=== PATIENT | female | born 1990 | race Caucasian/White ===

== ENCOUNTER 2018-07-03 09:35 | Inpatient (IN) ==
[2018-07-03] MEDS ORDERED: Sodium Chlor 0.9% Inj 500 ML IV.SIG PRN (10:13)
[2018-07-03] MEDS ORDERED: Oxytocin 30 Units/500ml Premix 30 UNITS/500 ML BAG IV.SIG ONE (10:13)
[2018-07-03] MEDS ORDERED: fentaNYL Citrate Inj 100 MCG/2 ML Ampul IV.PUSH PRN ×2 (10:13)
[2018-07-03] MEDS ORDERED: Sod Chloride 0.9% Inj 1,000 ML IV.CONT PRN (10:13)
[2018-07-03] MEDS ORDERED: Naloxone Inj 0.4 MG/ML Vial IV.PUSH PRN ×2 (10:13→18:21)
[2018-07-03] MEDS ORDERED: Citric Acid/Sodium Citrate Liq 30 ML UDC PO SCH (10:15)
--- NOTE | 2018-07-03 10:20 | P.HPOB ---
History of Present Illness Primary Care Physician: UNKNOWN History of Present Illness: 28 yr G for p 1021 at 39 weeks and 4 days gestation by ultrasound, that began to have contractions at 5 PM yesterday that were initially 10 minutes apart and increased to 5 minutes apart. She denies leakage of fluid, vaginal bleeding, vaginal discharge. She has been receiving care throughout the duration of her . She reports no complications with this . Endorses good movement. Ob Hx: Patient had a total of 4 pregnancies with one at term due to nonreassuring heart tracing. She has had one miscarriage and one elective . 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 Patient endorses smoking 1-2 cigarettes daily for the duration of her . She denies any use of alcohol at any point during her . She does endorse use of marijuana in the beginning of her for nausea. Allergies: None - Inpatient Certification I certify that the inpatient services were ordered in accordance with Medicare regulations governing the order. This includes certification that hospital inpatient services are reasonable and necessary and in the case of services not specified as inpatient-only under 42 CFR 419.22(n), that they are appropriately provided as inpatient services in accordance to with the 2-midnight benchmark under 43 CFR 412.3(e) Estimated Total Length of Stay (Days): 2 Plans for Post Hospital Care: Home Review of Systems Constitutional: Denies chills, Denies fatigue, Denies fever(s), Denies headache( s), Denies dizziness, Denies recent illness Eyes: Denies change in vision, Denies double vision, Denies blurry vision Cardiovascular: Denies chest pain, , Denies shortness of breath Respiratory: Denies shortness of breath or wheezing Gastrointestinal: Endorses nausea with one episode of nonbilious nonbloody vomiting this morning, denies abdominal pain, Denies constipation, Denies loose stools Genitourinary: Denies difficulty starting urination, Denies difficulty urinating , Denies painful urination, Denies urinary frequency, Denies pelvic pain, Denies urinary incontinence, Denies blood in urine OB: Endorses positive movement, Denies vaginal discharge or fluid PMFSH - Medical History Medical History: Medical History (Last Updated 07/03/18 @ 01:21 by Ary Michaels MD) Anxiety disorder - Surgical History Surgical History: Surgical History (Last Updated 07/03/18 @ 01:20 by Ary Michaels MD) H/O LEEP History of delivery - Tobacco History Smoking Status: Smoker, status unknown - Alcohol History How Often Do You Have a Drink Containing Alcohol: Never - Substance Use History Substance History: No History of Abuse - Travel History History of Recent Travel: No Recent Travel in the [place] Within the Last 8 Weeks: No Recent Travel Out of the Country Within the Last 8 Weeks: No Medications and Allergies Allergies Allergy/AdvReac Type Severity Reaction Status Date / Time No Known Allergies Allergy Verified 07/03/18 00:48 Home Medications Medication Instructions Recorded Confirmed Type PNV #[id number] 1 tab PO QWEEK 07/03/18 07/03/18 History Active Medications: Active Medications Citric Acid/Sodium Citrate (Sodium Citrate/Citric Acid Liq) 30 ml 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 Stop: 07/07/18 10:14 Fentanyl Citrate (Fentanyl Inj) 50 mcg IV.PUSH Q1H PRN PRN Reason: Pain Scale 3 - 5 Fentanyl Citrate (Fentanyl Inj) 100 mcg IV.PUSH Q1H PRN PRN Reason: PAIN SCALE 6 TO 10 Lactated Ringer's (Lr 1000 Ml Inj) 1,000 mls @ 125 mls/hr IV.CONT .Q8H GARRICK Lactated Ringer's (Lr 1000 Ml Inj) 1,000 mls @ 3,000 mls/hr IV.SIG UNSCH PRN PRN Reason: compromise or epidural Sodium Chloride (Ns Inj) 1,000 mls @ 100 mls/hr IV.CONT .Q10H PRN PRN Reason: SEE LABEL COMMENTS Oxytocin (Pitocin 30 Units/Ns 500 Ml Premix) 30 units in 500 mls @ 999 mls/hr IV.SIG BOLUS ONE Stop: 07/03/18 10:43 Sodium Chloride (Ns Inj) 500 mls @ 1,000 mls/hr IV.SIG UNSCH PRN PRN Reason: SEE LABEL COMMENTS Lidocaine HCl (Xylocaine 1% Inj) 0.1 ml I-DERMAL PRN PRN PRN Reason: For IV start Stop: 07/06/18 10:12 Lidocaine HCl (Xylocaine 1% Inj) 10 ml INFILTRATN PRN PRN PRN Reason: For episiotomy repair Stop: 07/05/18 10:12 Mineral Oil (Muri-Lube Oil) 10 ml TOPICAL PRN PRN PRN Reason: PRN perineal massage Naloxone HCl (Narcan Inj) 0.1 mg IV.PUSH Q2M PRN PRN Reason: for opiate reversal Exam Vital signs: Vital Signs 07/03/18 09:48 07/03/18 09:55 Temperature 97.9 F Pulse Rate 88 83 Respiratory Rate 18 Blood Pressure 124/74 Intake & Output 07/02/18 07/03/18 07/03/18 18:59 06:59 18:59 Weight 97.976 kg Narrative: GENERAL: Well-nourished, well-developed patient. SKIN: Warm and dry. HEAD: Normocephalic and atraumatic. EYES: No scleral icterus. No injection or drainage. CARDIOVASCULAR: Regular rate and rhythm without murmurs, gallops, or rubs. RESPIRATORY: Breath sounds equal bilaterally. No accessory muscle use. ABDOMEN/GI: Abdomen soft, non-tender, bowel sounds present, no rebound, no guarding Gravid to 40 weeks size GENITOURINARY: External Genitalia: intact and normal in appearance Dilatation: 4-5 Effacement: 90% effaced Station: -2 Presentation: vertex Membranes: Intact Uterine Contractions: Yes FHT's: Category: 2 Baseline: 130s Reactive: Yes Variability: Moderate Decels: Occasional variables EXTREMITIES: No cyanosis or edema. BACK: Nontender without obvious deformity. No CVA tenderness. NEUROLOGICAL: Awake and alert. Moves all extremities without difficulty. Normal speech. Results - Labs CBC & Chem 7: 07/03/18 10:45 Caprini VTE Risk Assessment Caprini VTE Risk Assessment: No/Low Risk (score <= 1) Caprini Risk Assessment Model: Point Value = 1 Point Value = 2 Point Value = 3 Point Value = 5 Age 41-60 Minor surgery BMI > 25 kg/m2 Swollen legs Varicose veins or History of unexplained or recurrent spontaneous Oral contraceptives or hormone replacement Sepsis (< 1 month) Serious lung disease, including pneumonia (< 1 month) Abnormal pulmonary function Acute myocardial infarction Congestive heart failure (< 1 month) History of inflammatory bowel disease Medical patient at bed rest Age 61-74 Arthroscopic surgery Major open surgery (> 45 min) Laparoscopic surgery (> 45 min) Malignancy Confined to bed (> 72 hours) Immobilizing plaster cast Central venous access Age >= 75 History of VTE Family history of VTE Factor V Leiden Prothrombin [id number] Lupus anticoagulant Anticardiolipin antibodies Elevated serum homocysteine Heparin-induced thrombocytopenia Other congenital or acquired thrombophilia Stroke (< 1 month) Elective arthroplasty Hip, pelvis, or leg fracture Acute spinal cord injury (< 1 month) Prophylaxis Regimen: Total Risk Factor Score Risk Level Prophylaxis Regimen 0-1 Low Early ambulation 2 Moderate Order ONE of the following: *Sequential Compression Device (SCD) *Heparin 5000 units SQ BID 3-4 Higher Order ONE of the following medications: *Heparin 5000 units SQ TID *Enoxaparin/Lovenox 40 mg SQ daily (WT < 150 kg, CrCl > 30 mL/min) *Enoxaparin/Lovenox 30 mg SQ daily (WT < 150 kg, CrCl > 10-29 mL/min) *Enoxaparin/Lovenox 30 mg SQ BID (WT < 150 kg, CrCl > 30 mL/min) AND/OR *Sequential Compression Device (SCD) 5 or more Highest Order ONE of the following medications: *Heparin 5000 units SQ TID (Preferred with Epidurals) *Enoxaparin/Lovenox 40 mg SQ daily (WT < 150 kg, CrCl > 30 mL/min) *Enoxaparin/Lovenox 30 mg SQ daily (WT < 150 kg, CrCl > 10-29 mL/min) *Enoxaparin/Lovenox 30 mg SQ BID (WT < 150 kg, CrCl > 30 mL/min) AND *Sequential Compression Device (SCD) Assessment and Plan - Plan 28 yr G for p 1021 at 39 weeks and 4 days gestation by ultrasound, that began to have contractions at 5 PM yesterday that were initially 10 minutes apart and increased to 5 minutes apart. Patient found to be 4-5 cm dilated with 90% effaced and -2 station with intact membranes. Reassuring heart rate. Patient will be admitted for labor. GBS negative. Patient requests epidural. -admit to labor and delivery line -Expectant management -Monitor heart rate -Monitor contractions via tocometer -Cervical checks every 4 -Epidural for pain - Attending Attestation The exam, history, and the medical decision-making described in the above note were completed with the assistance of the resident physician. I reviewed and agree with the findings presented. I attest that I had a [id number] encounter with the patient on the same day, and personally performed and documented my assessment and findings in the medical record.
[2018-07-03 11:19] LABS: Baso # (Auto) 0.1 th/mm3 (0.0-0.2); Baso % (Auto) 0.6 % (0.0-2.0); Eos % (Auto) 0.2 % (0.0-4.0); Hematocrit 40.5 % (35.0-46.0); Hemoglobin 13.4 gm/dL (11.6-15.3); Lymph # (Auto) 1.3 th/mm3 (1.0-4.8); Lymph % (Auto) 6.9 % (9.0-44.0); Mean Corpuscular HGB Conc 33.1 % (32.0-36.0); Mean Corpuscular Hemoglobin 29.5 pg (27.0-34.0); Mean Corpuscular Volume 89.3 fL (80.0-100.0); Mean Platelet Volume 8.2 fL (7.0-11.0); Mono # (Auto) 1.1 th/mm3 (0.0-0.9); Mono % (Auto) 5.6 % (0.0-8.0); Neut # (Auto) 16.5 th/mm3 (1.8-7.7); Neut % (Auto) 86.7 % (16.0-70.0); Platelet Count 333 th/mm3 (150-450); Red Blood Count 4.53 mil/mm3 (4.00-5.30); Red Cell Distribution Width 13.4 % (11.6-17.2)
[2018-07-03] MEDS ORDERED: fentaNYL 2MCG-Bupiv 0.125% Epi 150 ML EPIDURAL ONE (11:26)
--- NOTE | 2018-07-03 14:11 | P.OBLABOR ---
Subjective Interval history: The patient reports good relief with her epidural. Objective Vital Signs: Vital Signs - 8 hr 07/03/18 09:48 07/03/18 09:55 07/03/18 10:40 Temperature 97.9 F Pulse Rate 88 83 74 Respiratory Rate 18 20 Blood Pressure 124/74 07/03/18 11:00 07/03/18 11:05 07/03/18 11:30 Temperature Pulse Rate 78 94 H 77 Respiratory Rate 20 20 Blood Pressure 126/69 127/72 07/03/18 11:56 07/03/18 12:21 07/03/18 12:25 Temperature Pulse Rate 80 84 94 H Respiratory Rate Blood Pressure 142/97 H 135/83 07/03/18 12:30 07/03/18 13:00 07/03/18 13:10 Temperature Pulse Rate 86 90 Respiratory Rate 20 20 Blood Pressure 128/78 121/66 07/03/18 13:30 07/03/18 13:56 Temperature Pulse Rate 81 85 Respiratory Rate 20 20 Blood Pressure 127/81 Objective: Pelvic Exam: Cervix: [-] Dilatation: [6-] Effacement: [-100] Station: [-2-] Presentation: [-vtx] Membranes: [ruptured] Uterine Contractions: [-q3] FHT's: Category: [1-] Baseline: [-] Reactive: [-] Variability: [mod-] Decels: [-] Artificial Rupture of Membrane: Yes Artificial ROM Date: 07/03/18 Artificial ROM Time: 14:08 Assessment and Plan - Plan 28 yr G for p 1021 at 39 weeks and 4 days gestation by ultrasound, that began to have contractions at 5 PM yesterday that were initially 10 minutes apart and increased to 5 minutes apart. Patient found to be 4-5 cm dilated with 90% effaced and -2 station with intact membranes. Reassuring heart rate. Patient will be admitted for labor. GBS negative. Progressing in active labor with continued reassuring status.
[2018-07-03] MEDS ORDERED: Bupivacaine PF 0.25% Inj 10 ML Vial ONE (15:49)
[2018-07-03] MEDS ORDERED: Diphtheria/Tetanus/Pertussis Vaccine Inj 0.5 ML Syringe IM ONE (16:00)
[2018-07-03] MEDS ORDERED: Measles/Mumps/Rubella Vaccine Inj 0.5 ML Vial SQ ONE (16:00)
[2018-07-03 16:02] LABS: Bilirubin,Urine Negative (Negative); Clarity,Urine Hazy (Clear); Color,Urine Yellow (Yellw/Straw); Glucose,Urine (UA) 50 mg/dL (Negative); Leukocyte Esterase,Urine Small (Negative); Nitrite,Urine Negative (Negative); Specific Gravity,Urine 1.017 (1.002-1.035); Squamous Epithelial Cell,Urine 2 /hpf (0-5)
[2018-07-03 16:12] LABS: Amphetamine Urine With Conf Neg (Neg); Benzodiazepine Urine With Conf Neg (Neg)
[2018-07-03] MEDS ORDERED: Bisacodyl 10 MG Supp RECTAL PRN (18:21)
[2018-07-03] MEDS ORDERED: Acetaminophen 325 MG Tablet PO PRN (18:21)
[2018-07-03] MEDS ORDERED: Witch Hazel 50%/Glyderin 12.5% 40 Pad Jar RECTAL PRN (18:21)
[2018-07-03] MEDS ORDERED: Oxytocin 30 Units/500ml Premix 30 UNITS/500 ML BAG IV.CONT PRN (18:21)
[2018-07-03] MEDS ORDERED: Benzocaine 20% Top Spray 60 ML Can TOPICAL PRN (18:21)
--- NOTE | 2018-07-03 18:21 | P.OBDELI ---
Weeks Gestation: 39 Patient Started Active Labor: Yes Active Labor Start Date: 07/03/18 Active Labor Start Time: 11:00 Medical Induction of Labor: No Artificial Rupture of Membrane: Yes Artificial ROM Date: 07/03/18 Anesthesia: Epidural Episiotomy: none Vaginal Delivery: Normal, Spontaneous, Presentation: Occiput anterior Nuchal Cord: None Delayed Cord Clamping (45 sec): Yes Placenta: Spontaneous delivery, Intact
[2018-07-03] MEDS ORDERED: Zolpidem Tartrate 5 MG Tablet PO PRN (21:00)
[2018-07-04] MEDS: Senna/Docusate Sodium 8.6/50 MG Tablet PO SCH ×2 (03:04→10:49)
--- NOTE | 2018-07-04 08:52 | P.PNOB ---
Subjective Interval history: day #1 AFVSS overnight. Decreased lochia. Denies dysuria. No breast pain. Appetite good. No nausea or vomiting. Ambulating well. Denies calf pain or shortness of breath. Otherwise, she is doing well this morning and has no other complaints. Objective Vital Signs/I&O: Vital Signs 07/03/18 09:48 07/03/18 09:55 07/03/18 10:40 Temperature 97.9 F Pulse Rate 88 83 74 Respiratory Rate 18 20 Blood Pressure 124/74 07/03/18 11:00 07/03/18 11:05 07/03/18 11:30 Temperature Pulse Rate 78 94 H 77 Respiratory Rate 20 20 Blood Pressure 126/69 127/72 07/03/18 11:56 07/03/18 12:21 07/03/18 12:25 Temperature Pulse Rate 80 84 94 H Respiratory Rate Blood Pressure 142/97 H 135/83 07/03/18 12:30 07/03/18 13:00 07/03/18 13:10 Temperature Pulse Rate 86 90 Respiratory Rate 20 20 Blood Pressure 128/78 121/66 07/03/18 13:30 07/03/18 13:56 07/03/18 14:00 Temperature 97.9 F Pulse Rate 81 85 Respiratory Rate 20 20 Blood Pressure 127/81 07/03/18 14:25 07/03/18 14:29 07/03/18 15:00 Temperature Pulse Rate 83 80 Respiratory Rate 20 20 Blood Pressure 131/82 127/77 07/03/18 15:10 07/03/18 15:21 07/03/18 15:25 Temperature Pulse Rate 85 82 88 Respiratory Rate 20 Blood Pressure 130/87 07/03/18 15:45 07/03/18 15:55 07/03/18 16:00 Temperature 97.9 F Pulse Rate 92 H 83 85 Respiratory Rate 20 Blood Pressure 133/91 H 07/03/18 16:11 07/03/18 16:15 07/03/18 16:20 Temperature Pulse Rate 83 89 89 Respiratory Rate 20 Blood Pressure 140/109 H 07/03/18 16:50 07/03/18 17:00 07/03/18 17:25 Temperature Pulse Rate 87 81 106 H Respiratory Rate 20 Blood Pressure 106/61 70/30 L 07/03/18 17:30 07/03/18 17:55 07/03/18 18:20 Temperature 98.5 F Pulse Rate 111 H Respiratory Rate 20 20 Blood Pressure 115/67 07/03/18 18:30 07/03/18 18:45 07/03/18 19:00 Temperature Pulse Rate 107 H 95 H 94 H Respiratory Rate 18 18 18 Blood Pressure 145/77 H 133/59 L 120/56 L 07/03/18 20:30 Temperature 98.2 F Pulse Rate 80 Respiratory Rate 17 Blood Pressure 119/65 Intake & Output 07/03/18 07/04/18 07/04/18 18:59 06:59 18:59 Weight 98.066 kg Other: Weight On Admission 97.976 kg Result Diagrams: 07/03/18 10:45 Objective Remarks: GENERAL: Well-nourished, well-developed patient. CARDIOVASCULAR: Regular rate and rhythm without murmurs, gallops, or rubs. RESPIRATORY: Breath sounds equal bilaterally. No accessory muscle use. ABDOMEN/GI: Abdomen soft, non-tender. Fundus: Firm, non-tender at umbilicus. GENITOURINARY: Light to moderate bleeding. EXTREMITIES: No cyanosis or edema, non-tender, without signs of DVT. 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 [facility] Stop: 07/07/18 10:14 Fentanyl Citrate (Fentanyl Inj) 50 mcg IV.PUSH Q1H PRN PRN Reason: Pain Scale 3 - 5 Fentanyl Citrate (Fentanyl Inj) 100 mcg IV.PUSH Q1H PRN PRN Reason: PAIN SCALE 6 TO 10 Lactated Ringer's (Lr 1000 Ml Inj) 1,000 mls @ 125 mls/hr IV.CONT .Q8H [facility] Lactated Ringer's (Lr 1000 Ml Inj) 1,000 mls @ 3,000 mls/hr IV.SIG UNSCH PRN PRN Reason: compromise or epidural Last Admin: 07/03/18 11:01 Dose: 3,000 mls/hr Sodium Chloride (Ns Inj) 1,000 mls @ 100 mls/hr IV.CONT .Q10H PRN PRN Reason: SEE LABEL COMMENTS Sodium Chloride (Ns Inj) 500 mls @ 1,000 mls/hr IV.SIG UNSCH PRN PRN Reason: SEE LABEL COMMENTS Oxytocin (Pitocin 30 Units/Ns 500 Ml Premix) 30 units in 500 mls @ 100 mls/hr IV.CONT UNSCH PRN PRN Reason: Heavy bleeding Ibuprofen (Motrin) 800 mg PO Q8H PRN PRN Reason: For Cramping Last Admin: 07/04/18 00:09 Dose: 800 mg Lactulose (Lactulose Liq) 30 ml PO DAILY PRN PRN Reason: SEVERE CONSITIPATION Lidocaine HCl (Xylocaine 1% Inj) 0.1 ml I-DERMAL PRN PRN PRN Reason: For IV start Stop: 07/06/18 10:12 Lidocaine HCl (Xylocaine 1% Inj) 10 ml INFILTRATN PRN PRN PRN Reason: For episiotomy repair Stop: 07/05/18 10:12 Mineral Oil (Muri-Lube Oil) 10 ml TOPICAL PRN PRN PRN Reason: PRN perineal massage Naloxone HCl (Narcan Inj) 0.1 mg IV.PUSH Q2M PRN PRN Reason: for opiate reversal Ondansetron HCl (Zofran Odt) 4 mg PO Q6H PRN PRN Reason: NAUSEA OR VOMITING Oxycodone/Acetaminophen (Percocet 5/325 Mg) 2 tab PO Q4H PRN PRN Reason: PAIN SCALE 6 TO 10 Last Admin: 07/04/18 04:24 Dose: 2 tab Senna/Docusate Sodium (Alisha-Colace) 1 tab PO BID [facility] Last Admin: 07/04/18 03:04 Dose: Not Given Sennosides (Senokot) 17.2 mg PO Q12H PRN PRN Reason: Moderate Constipation Sodium Chloride (Ns Flush) 2 ml IV.FLUSH BID [facility] Last Admin: 07/04/18 03:03 Dose: Not Given Sodium Chloride (Ns Flush) 2 ml IV.FLUSH PRN PRN PRN Reason: FLUSH AFTER USING IV ACCESS Witch Patricia/Glycerin (Tucks Pads) 1 applicatio RECTAL QID PRN PRN Reason: HEMORRHOIDS Zolpidem Tartrate (Ambien) 5 mg PO HS PRN PRN Reason: SLEEP Assessment and Plan - Plan 28y/o female who is PPD#1 s/p vaginal delivery. -Continue routine care. -Motrin PRN pain. -Encouraged OOB. Advised pelvic rest for 6 wks. -Re: ctrl, she would like to consider options for now. -D/c in 1-[address] Wheeler - Attending Attestation The exam, history, and the medical decision-making described in the above note were completed with the assistance of the resident physician. I reviewed and agree with the findings presented. I attest that I had a [id number] encounter with the patient on the same day, and personally performed and documented my assessment and findings in the medical record.
--- NOTE | 2018-07-04 17:14 | P.DS ---
Date of admission: 07/03/18 10:10 Primary care physician: UNKNOWN Attending physician on discharge: Lou Alvarez Anticipated date of discharge: 07/04/18 Brief History from admission: 28 yr G for p 1021 at 39 weeks and 4 days gestation by ultrasound, that began to have contractions at 5 PM yesterday that were initially 10 minutes apart and increased to 5 minutes apart. She denies leakage of fluid, vaginal bleeding, vaginal discharge. She has been receiving care throughout the duration of her . She reports no complications with this . Endorses good movement. Ob Hx: Patient had a total of 4 pregnancies with one at term due to nonreassuring heart tracing. She has had one miscarriage and one elective . 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 Patient endorses smoking 1-2 cigarettes daily for the duration of her . She denies any use of alcohol at any point during her . She does endorse use of marijuana in the beginning of her for nausea. Allergies: None DS: Medications - Discharge Medications Prescriptions: ibuprofen [IBU] 600 mg PO QID PRN 7 Days #30 tab PRN Reason: Pain DS: Summary Hospital Course: The patient is a 28-year-old 012 presented at 39.4 in active labor. She history of a previous delivery and desired a trial of labor. The patient underwent successful and uneventful was transferred to the unit in stable condition. Her course was uneventful and on day 1 she was requesting discharge home. She will be discharged home in stable condition. - Time Spent with Patient Total time spent providing and/or coordinating discharge services: Less than 30 minutes Exam Vital signs: Vital Signs 07/03/18 17:25 07/03/18 17:30 07/03/18 17:55 Temperature Pulse Rate 106 H 111 H Respiratory Rate 20 20 Blood Pressure 70/30 L 115/67 07/03/18 18:20 07/03/18 18:30 07/03/18 18:45 Temperature 98.5 F Pulse Rate 107 H 95 H Respiratory Rate 18 18 Blood Pressure 145/77 H 133/59 L 07/03/18 19:00 07/03/18 20:30 07/04/18 08:00 Temperature 98.2 F 97.8 F Pulse Rate 94 H 80 73 Respiratory Rate 18 17 20 Blood Pressure 120/56 L 119/65 118/71 Intake & Output 07/03/18 07/04/18 07/04/18 18:59 06:59 18:59 Weight 98.066 kg Other: Weight On Admission 97.976 kg Results Procedures completed during hospitalization: / Discharge Plan - Discharge Disposition Patient Disposition: 01 Discharge Home - Discharge Condition Condition: Stable - Discharge Order Discharge Orders: Discharge Order (Routine); Ordered 07/04/18 Ordered By: Lou Alvarez - Discharge Details Anticipated Discharge Date: 07/03/18 - Physicians Team Primary Care Provider: UNKNOWN, Attending Provider: Harsh Wheeler
== END 2018-07-04 19:33 | disposition home or self-care (01) ==
LOC: HOBED 09:35 → H2E 10:10 → H1EA 19:55
PROVIDERS: ADMIT Obstetrics & Gynecology; ATTEND Obstetrics & Gynecology